=== PATIENT | female | born 1935 | race African-American/Black ===

== ENCOUNTER 2020-10-29 17:59 | Inpatient (IN) ==
[2020-10-29] MEDS ORDERED: ASPIRIN 325 MG TABLET PO STA (18:31)
[2020-10-29] MEDS ORDERED: SODIUM CHLORIDE 0.9% 1,000 ML IV STA (18:31)
[2020-10-29 18:42] LABS: Eosinophils % 0.5 % (0.00-10.9); Hematocrit 38.8 VOL% (35.7-47.0); Hemoglobin 12.3 GM/DL (12.0-16.0); Immature Granulocytes % 0.2 %; Immature Granulocytes Absolute 0.01 #; Lymphocytes # 1.7 10*3/uL (1.4-4.0); Lymphocytes % 41.7 % (21.3-54.2); Mean Corpuscular HGB Conc 31.7 GM/DL (32-36); Mean Corpuscular Volume 88.6 FL (87-102); Mean Platelet Volume 10.3 FL (9.6-12.0); Neutrophils % 45.6 % (38.7-73.9); Platelet Count 224 T/CUMM (130-400); Red Blood Count 4.38 MC/CUMM (3.8-5.5); Red Cell Distribution Width 16.7 % (9.3-17.3); White Blood Count 4.2 T/CUMM (4-12)
[2020-10-29 18:52] LABS: INR 1.2; PT Patient Result 13.2 SECS (10.5-12.0); Partial Thromboplastin Time 25.1 SECS (23.9-33.8)
[2020-10-29 19:51] LABS: Bilirubin,Urine Negative (Negative); Blood, Urine Moderate mg/dL (Negative); Glucose,Urine (UA) Negative (Negative); Hyaline Casts,Urine 11 /LPF (0-3); Ketones,Urine 5 mg/dL (Negative); Mucus,Urine Few /LPF (Occasional); Nitrite,Urine Negative (Negative); Protein,Urine 100 MG/DL; RBC,Urine 5 /HPF (0-4); Squamous Epithelial Cell,Urine Occasional /HPF (0-10); Urine Appearance Slightly Hazy (Clear); Urine Color Amber (Yellow)
[2020-10-29] MEDS ORDERED: SODIUM CHLORIDE 0.9% 250 ML IV STA (19:57)
[2020-10-29 20:10] LABS: Albumin 3.1 G/DL (3.4-5.0); Calcium 8.7 MG/DL (8.5-10.1); Osmolality,Calculated 277.5 MOS/KG (273-304); Thyroid Stimulating Hormone 3.21 uIU/ml (0.358-3.74); Total Protein 5.9 G/DL (6.4-8.2)
[2020-10-29] MEDS ORDERED: FUROSEMIDE 40 MG/4 ML VIAL IV STA (20:42)
[2020-10-29] MEDS ORDERED: MAGNESIUM SULF RIDER 4 GM/100 ML PREMIX IV PRN (23:05)
[2020-10-29] MEDS ORDERED: MAGNESIUM SULF RIDER 2 GM/50 ML PREMIX IV PRN (23:05)
[2020-10-29] MEDS ORDERED: DOCUSATE SODIUM 100 MG CAPSULE PO PRN (23:14)
[2020-10-29] MEDS ORDERED: GLUCAGON 1 MG VIAL IM PRN (23:14)
[2020-10-29] MEDS ORDERED: DEXTROSE 50% 25 GM/50 ML VIAL IV PRN (23:14)
[2020-10-29] MEDS ORDERED: ACETAMINOPHEN 325 MG TABLET PO PRN (23:14)
[2020-10-29] MEDS ORDERED: ONDANSETRON 4 MG/2 ML VIAL IV PRN (23:14)
[2020-10-30 05:31] LABS: Basophils % 0.9 % (0.0-0.8); Eosinophils # 0.1 10*3/uL (0.0-0.87); Eosinophils % 1.4 % (0.00-10.9); Hematocrit 37.1 VOL% (35.7-47.0); Immature Granulocytes % 0.6 %; Immature Granulocytes Absolute 0.02 #; Lymphocytes # 1.4 10*3/uL (1.4-4.0); Lymphocytes % 40.5 % (21.3-54.2); Mean Corpuscular HGB Conc 32.3 GM/DL (32-36); Mean Corpuscular Volume 88.1 FL (87-102); Mean Platelet Volume 10.6 FL (9.6-12.0); Monocytes % 13.3 % (1.7-12.7); Neutrophils % 43.3 % (38.7-73.9); Platelet Count 189 T/CUMM (130-400); Red Blood Count 4.21 MC/CUMM (3.8-5.5); Red Cell Distribution Width 16.9 % (9.3-17.3); White Blood Count 3.5 T/CUMM (4-12)
[2020-10-30 05:53] LABS: Calcium 8.4 MG/DL (8.5-10.1); Osmolality,Calculated 281.3 MOS/KG (273-304); Potassium 3.5 MMOL/L (3.5-5.1)
[2020-10-30] MEDS ORDERED: ENOXAPARIN 40 MG/0.4 ML SYRINGE SUBCUT SCH (09:00)
[2020-10-30] MEDS ORDERED: METOPROLOL TARTRATE 25 MG TABLET PO SCH (09:00)
[2020-10-30] MEDS: FUROSEMIDE 40 MG/4 ML VIAL IV SCH ×2 (09:09→15:31)
[2020-10-30] MEDS ORDERED: MAGNESIUM SULF RIDER 2 GM/50 ML PREMIX IV ONE (09:51)
[2020-10-30] MEDS ORDERED: POTASSIUM CHLORIDE 20 MEQ TABLET PO ONE (09:58)
[2020-10-30] MEDS: MAGNESIUM OXIDE 400 MG TABLET PO SCH ×2 (10:30→21:32)
[2020-10-30] MEDS ORDERED: METOPROLOL TARTRATE 5 MG/5 ML VIAL IV ONE ×2 (10:42→14:01)
[2020-10-30] MEDS ORDERED: DIGOXIN 0.5 MG/2 ML AMP IV ONE ×3 (12:15→18:00)
[2020-10-30] MEDS ORDERED: SPIRONOLACTONE 25 MG TABLET PO ONE (12:21)
[2020-10-30] MEDS: LEVOFLOXACIN INJ 500 MG/100 ML PREMIX IV SCH (12:52)
[2020-10-30 16:52] LABS: Calcium 8.6 MG/DL (8.5-10.1); Potassium 4.1 MMOL/L (3.5-5.1)
[2020-10-30] MEDS: DILTIAZEM 30 MG TABLET PO SCH ×2 (17:21→21:32)
[2020-10-30] MEDS: ENOXAPARIN 60 MG/0.6 ML SYRINGE SUBCUT SCH (17:22)
[2020-10-30] MEDS: DILTIAZEM INJ 100 MG in SODIUM CHLORIDE 0.9% 100 ML IV SCH (18:36)
[2020-10-30] MEDS: METOPROLOL TARTRATE 25 MG TABLET PO SCH (21:30)
[2020-10-30] MEDS: ASCORBIC ACID 500 MG TABLET PO SCH (21:33)
[2020-10-31] MEDS: ENOXAPARIN 60 MG/0.6 ML SYRINGE SUBCUT SCH (04:40)
[2020-10-31 05:07] LABS: Basophils % 0.9 % (0.0-0.8); Eosinophils # 0.1 10*3/uL (0.0-0.87); Eosinophils % 1.6 % (0.00-10.9); Hematocrit 41.3 VOL% (35.7-47.0); Hemoglobin 13.1 GM/DL (12.0-16.0); Immature Granulocytes % 0.2 %; Immature Granulocytes Absolute 0.01 #; Lymphocytes # 1.6 10*3/uL (1.4-4.0); Mean Corpuscular HGB Conc 31.7 GM/DL (32-36); Mean Corpuscular Volume 88.8 FL (87-102); Mean Platelet Volume 10.5 FL (9.6-12.0); Monocytes % 11.3 % (1.7-12.7); Platelet Count 218 T/CUMM (130-400); Red Blood Count 4.65 MC/CUMM (3.8-5.5); Red Cell Distribution Width 16.2 % (9.3-17.3); White Blood Count 4.4 T/CUMM (4-12)
[2020-10-31 05:24] LABS: Calcium 8.3 MG/DL (8.5-10.1); Osmolality,Calculated 275.4 MOS/KG (273-304); Potassium 3.6 MMOL/L (3.5-5.1)
[2020-10-31 05:27] LABS: Calcium 8.4 MG/DL (8.5-10.1); Osmolality,Calculated 269.8 MOS/KG (273-304); Potassium 3.6 MMOL/L (3.5-5.1)
[2020-10-31] MEDS ORDERED: ASPIRIN EC 81 MG TABLET PO SCH (09:00)
[2020-10-31] MEDS: METOPROLOL TARTRATE 25 MG TABLET PO SCH (09:12)
[2020-10-31] MEDS: ASCORBIC ACID 500 MG TABLET PO SCH ×2 (09:12→20:57)
[2020-10-31] MEDS: FUROSEMIDE 40 MG/4 ML VIAL IV SCH ×2 (09:12→15:44)
[2020-10-31] MEDS: POTASSIUM CHLORIDE 20 MEQ TABLET PO SCH (09:13)
[2020-10-31] MEDS: MAGNESIUM OXIDE 400 MG TABLET PO SCH ×2 (09:14→20:58)
[2020-10-31] MEDS: SPIRONOLACTONE 25 MG TABLET PO SCH (09:14)
[2020-10-31] MEDS: DILTIAZEM 30 MG TABLET PO SCH ×4 (09:22→20:57)
[2020-10-31] MEDS: LEVOFLOXACIN INJ 500 MG/100 ML PREMIX IV SCH (12:01)
[2020-10-31] MEDS: SACUBITRIL/VALSARTAN 49-51 MG TABLET PO SCH (20:57)
[2020-10-31] MEDS: METOPROLOL SUCCINATE XL 25 MG TABLET PO SCH (20:57)
[2020-11-01 05:51] LABS: Basophils % 0.3 % (0.0-0.8); Eosinophils # 0.1 10*3/uL (0.0-0.87); Eosinophils % 1.7 % (0.00-10.9); Hematocrit 43.5 VOL% (35.7-47.0); Hemoglobin 13.9 GM/DL (12.0-16.0); Immature Granulocytes % 0.3 %; Immature Granulocytes Absolute 0.01 #; Lymphocytes # 1.2 10*3/uL (1.4-4.0); Lymphocytes % 32.6 % (21.3-54.2); Mean Corpuscular Volume 88.8 FL (87-102); Mean Platelet Volume 10.2 FL (9.6-12.0); Monocytes % 14.2 % (1.7-12.7); Neutrophils % 50.9 % (38.7-73.9); Platelet Count 252 T/CUMM (130-400); White Blood Count 3.6 T/CUMM (4-12)
[2020-11-01 06:16] LABS: Calcium 8.4 MG/DL (8.5-10.1); Osmolality,Calculated 271.7 MOS/KG (273-304); Potassium 3.8 MMOL/L (3.5-5.1)
[2020-11-01] MEDS: ASCORBIC ACID 500 MG TABLET PO SCH ×2 (08:34→21:07)
[2020-11-01] MEDS: POTASSIUM CHLORIDE 20 MEQ TABLET PO SCH (08:34)
[2020-11-01] MEDS: METOPROLOL SUCCINATE XL 25 MG TABLET PO SCH ×2 (08:34→21:07)
[2020-11-01] MEDS: DILTIAZEM 30 MG TABLET PO SCH ×4 (08:34→21:07)
[2020-11-01] MEDS: MAGNESIUM OXIDE 400 MG TABLET PO SCH ×2 (08:34→21:07)
[2020-11-01] MEDS: SPIRONOLACTONE 25 MG TABLET PO SCH (08:34)
[2020-11-01] MEDS: FUROSEMIDE 40 MG/4 ML VIAL IV SCH ×2 (08:35→16:35)
[2020-11-01] MEDS: SACUBITRIL/VALSARTAN 49-51 MG TABLET PO SCH ×2 (08:35→21:07)
[2020-11-01] MEDS: DILTIAZEM INJ 100 MG in SODIUM CHLORIDE 0.9% 100 ML IV SCH ×2 (09:34→17:03)
[2020-11-01] MEDS: LEVOFLOXACIN INJ 500 MG/100 ML PREMIX IV SCH (11:57)
[2020-11-01 12:54] LABS: Lymphocytes,Pleural Fluid 80 %; Monocytes,Pleural Fluid 13 %; Neutrophils,Pleural Fluid 6 %
[2020-11-01 12:58] LABS: RBC,Pleural Fluid 3695 T/CUMM
[2020-11-02 04:56] LABS: Basophils % 0.6 % (0.0-0.8); Eosinophils # 0.1 10*3/uL (0.0-0.87); Eosinophils % 1.2 % (0.00-10.9); Hematocrit 47.6 VOL% (35.7-47.0); Hemoglobin 15.6 GM/DL (12.0-16.0); Immature Granulocytes % 0.2 %; Immature Granulocytes Absolute 0.01 #; Lymphocytes % 39.5 % (21.3-54.2); Mean Corpuscular HGB Conc 32.8 GM/DL (32-36); Mean Corpuscular Volume 87.8 FL (87-102); Mean Platelet Volume 10.9 FL (9.6-12.0); Neutrophils % 48.5 % (38.7-73.9); Platelet Count 254 T/CUMM (130-400); Red Blood Count 5.42 MC/CUMM (3.8-5.5); Red Cell Distribution Width 16.1 % (9.3-17.3)
[2020-11-02 05:38] LABS: Calcium 8.8 MG/DL (8.5-10.1); Osmolality,Calculated 263.4 MOS/KG (273-304); Potassium 4.5 MMOL/L (3.5-5.1)
[2020-11-02] MEDS: SACUBITRIL/VALSARTAN 49-51 MG TABLET PO SCH (09:54)
[2020-11-02] MEDS: METOPROLOL SUCCINATE XL 25 MG TABLET PO SCH (09:54)
[2020-11-02] MEDS: MAGNESIUM OXIDE 400 MG TABLET PO SCH (09:55)
[2020-11-02] MEDS: DILTIAZEM 30 MG TABLET PO SCH ×2 (09:55→14:37)
[2020-11-02] MEDS: SPIRONOLACTONE 25 MG TABLET PO SCH (09:55)
[2020-11-02] MEDS: ASCORBIC ACID 500 MG TABLET PO SCH (09:55)
[2020-11-02] MEDS: POTASSIUM CHLORIDE 20 MEQ TABLET PO SCH (09:55)
[2020-11-02] MEDS: FUROSEMIDE 40 MG/4 ML VIAL IV SCH (09:57)
[2020-11-02 12:15] LABS: CEA, Pleural Fluid < 0.5 ng/mL
[2020-11-02] MEDS: LEVOFLOXACIN INJ 500 MG/100 ML PREMIX IV SCH (12:20)
[2020-11-02 12:38] VITALS: BP 118/88
== END 2020-11-02 15:33 | disposition home health service (06) | DRG 291 ==
LOC: N.ED 17:59 → N.EDINP 17:59 → SUATTDRO 23:02 → N.TELEN 23:27
PROVIDERS: ADMIT Hospitalist; ATTEND Internal Medicine
PROC: IRTHORA (2020-11-01 10:40)